=== PATIENT | male | born 1945 | race Caucasian/White ===

== ENCOUNTER 2022-05-05 14:56 | Outpatient (REF) | payer MEDICARE, SELFPAY ==
[2022-05-05 17:13] LABS: TSH reflex Free T4 0.63 uIU/mL (0.32-4.0)
[2022-05-05 17:16] LABS: Erythrocyte Sedimentation Rate 16 MM/HR (0-15)
[2022-05-12 22:26] LABS: Acetylcholine Recept. Blocking <15 (<15)
[2022-05-16 20:31] LABS: Acetylcholine Recep Modulating 87
== END 2022-05-05 14:57 | disposition home or self-care (01) ==
LOC: HO.LAB 14:56
PROVIDERS: PCP Internal Medicine; Visit Provider Psychiatry & Neurology Neurology
DX: H02.409 Unspecified ptosis of unspecified eyelid (principal)
CPT/HCPCS: 36415; 82550; 83519; 84443; 85652